=== PATIENT | female | born 1975 | race Caucasian/White ===

== ENCOUNTER 2016-07-20 05:48 | Day surgery (SDC) | payer MEDICARE, MEDICAID ==
[~2016-07-20] VITALS: Ht 165.1 cm; Wt 67.0 kg
[~2016-07-20 05:48] MED LIST: ACID1TAB7; ARIP2TAB PO; ARIP5TAB6 PO; BUPR100T6 PO; BUPR300T49 PO; CHOL500050 PO; ERGO500017 PO; FERR325T20 PO; FLUD0.1T PO; HYDR-3307 PO; INHALER PO; IRON1TAB60 PO; LACT1CAP35 PO; MORP15TA39 PO; MULT-6 PO; NAPR500T3 PO; ONDA4TAB13 SL; OXYC10TA32 PO; OXYC5TAB3 PO; PARO10TA24 PO; SCOPALAMINE PATCH TP; SENN8.6T98 PO; TRAM50TA2 PO; TRAZ100T15 PO
[2016-07-20] MEDS ORDERED: LACTATED RINGERS 1,000 ML IV SCH (07:00)
[2016-07-20] MEDS ORDERED: ALBU6.7H INH (07:00)
[2016-07-20 07:01] VITALS: BP 124/88
[2016-07-20] MEDS ORDERED: BACITRACIN 50,000 UNIT ONE (07:01)
[2016-07-20] MEDS ORDERED: FENTANYL PF 250 MCG/5ML ONE (07:04)
[2016-07-20] MEDS ORDERED: MIDAZOLAM 1 MG/ML, 2ML ONE (07:04)
[2016-07-20] MEDS ORDERED: CEFAZOLIN 1,000 MG ONE (07:28)
[2016-07-20] MEDS ORDERED: PROPOFOL 10 MG/ML, 20ML ONE (07:28)
[2016-07-20] MEDS ORDERED: ONDANSETRON 2MG/ML, 2ML ONE (07:28)
[2016-07-20] MEDS ORDERED: METOCLOPRAMIDE 5 MG/ML, 2ML ONE (07:28)
[2016-07-20] MEDS ORDERED: BUPIVACAINE/PF-EPI 0.25% 1:200K ONE (07:52)
[2016-07-20] MEDS ORDERED: MEPERIDINE/PF 25MG/0.5ML IVPush PRN (08:00)
[2016-07-20] MEDS ORDERED: ACETAMINOPHEN 325 MG TABLET PO PRN (08:00)
[2016-07-20] MEDS ORDERED: LABETALOL 5MG/ML, 20ML IV PRN (08:00)
[2016-07-20] MEDS ORDERED: FENTANYL PF 100 MCG/2ML IV PRN (08:00)
[2016-07-20] MEDS ORDERED: HYDROcodone/APAP 7.5-325MG/15ML UDC PO PRN (08:00)
[2016-07-20] MEDS ORDERED: ONDANSETRON 2MG/ML, 2ML IVPush PRN (08:00)
[2016-07-20] MEDS ORDERED: PROMETHAZINE 25 MG/ML, 1ML IV PRN (08:00)
[2016-07-20] MEDS ORDERED: HYDROcodone/APAP 7.5-325MG/15ML UDC ONE (08:33)
[2016-07-20] MEDS ORDERED: MEPERIDINE/PF 25MG/0.5ML ONE (08:33)
== END 2016-07-20 10:25 | disposition home or self-care (01) ==
LOC: OUT 05:48
PROVIDERS: ATTEND Orthopaedic Surgery
DX: T84.84XA Pain due to internal orthopedic prosthetic devices, implants and grafts, initial encounter (principal); J45.909 Unspecified asthma, uncomplicated; G89.18 Other acute postprocedural pain; Y83.1 Surgical operation with implant of artificial internal device as the cause of abnormal reaction of the patient, or of later complication, without mention of misadventure at the time of the procedure
CPT/HCPCS: 20680; 71010; J0690; J2175; J2405; J2704; J2765; J3010; J7120; J2250

== ENCOUNTER 2017-02-18 10:03 | Inpatient (IN) | payer MEDICARE, MEDICAID ==
[~2017-02-18] VITALS: Ht 167.6 cm; Wt 67.8 kg
[~2017-02-18 10:03] MED LIST changes: +ALBU6.7H INH; -ARIP2TAB PO; +ARIP2TAB2 PO; +ARIP5TAB13 PO; -ARIP5TAB6 PO; +FERR325T18 PO; -FERR325T20 PO; +MORP-52 PO; -MORP15TA39 PO; -NAPR500T3 PO; +NAPR500T4 PO; -OXYC10TA32 PO; +OXYC10TA47 PO; -PARO10TA24 PO; +PARO10TA56 PO
[2017-02-18] MEDS ORDERED: OMEP-110 PO (12:14)
[2017-02-18] MEDS ORDERED: SODIUM CHLORIDE 0.9% 1,000ML IVBOLUS ONE (12:30)
[2017-02-18 12:42] LABS: RAPID INFLUENZA A Negative (Negative); RAPID INFLUENZA B Negative (Negative)
[2017-02-18 13:10] LABS: HEMATOCRIT 52.4 % (34.6-47.8); HEMOGLOBIN 17.4 g/dL (11.7-16.4); WHITE BLOOD COUNT 9.5 x10^3/uL (3.4-10)
[2017-02-18 13:20] LABS: BLOOD UREA NITROGEN 7 mg/dL (7-18)
[2017-02-18 13:24] LABS: ASPARTATE AMINO TRANSFERASE 271 U/L (15-37)
[2017-02-18 13:31] LABS: DIFF TOTAL CELLS COUNTED 100 CELL DIFF
[2017-02-18 13:33] LABS: VERIFY COUNTS? YES
[2017-02-18 13:35] LABS: LARGE PLATELETS 1+
[2017-02-18] MEDS ORDERED: CEFTRIAXONE PMX 1GM/50ML 50 ML ONE (14:22)
[2017-02-18] MEDS ORDERED: AZITHROMYCIN 500 MG in SODIUM CHLORIDE 0.9% 250 ML IVPB ONE (14:30)
[2017-02-18] MEDS ORDERED: CEFTRIAXONE PMX 1GM/50ML 50 ML IVPB ONE (14:30)
[2017-02-18] MEDS ORDERED: ONDANSETRON ODT 4 MG PO PRN (16:30)
[2017-02-18] MEDS ORDERED: ACETAMINOPHEN 325 MG TABLET PO PRN (16:30)
[2017-02-18] MEDS ORDERED: DOXYCYCLINE 100 MG in DEXTROSE 5% 250 ML IV SCH (16:30)
[2017-02-18] MEDS ORDERED: LORazepam 1MG TABLET PO PRN (16:30)
[2017-02-18 16:40] VITALS: BP 124/86
[2017-02-18] MEDS ORDERED: ALBUTEROL SULFATE 2.5 MG/3 ML ONE (17:16)
[2017-02-18] MEDS ORDERED: ALBUTEROL SULFATE 2.5 MG/3 ML NPPB PRN (17:30)
[2017-02-18] MEDS: ALBUTEROL SULFATE 2.5 MG/3 ML NPPB SCH (17:30)
[2017-02-18] MEDS: SODIUM CHLORIDE 0.9% 1,000 ML IV SCH (18:20)
[2017-02-18] MEDS: AMPICILLIN/SULBACTAM 3 GM in SODIUM CHLORIDE 0.9% 100 ML IV SCH ×2 (18:20→22:54)
[2017-02-18 19:50] VITALS: BP 111/76
[2017-02-18] MEDS: ENOXAPARIN 40 MG/0.4 ML SQ SCH (19:57)
[2017-02-18] MEDS: OMEPRAZOLE 20 MG CAPSULE.DR PO SCH (19:57)
[2017-02-18] MEDS: GUAIFENESIN/DM 200-20MG, 10ML UDC PO PRN (19:57)
[2017-02-18] MEDS: DOXYCYCLINE 100MG TABLET PO SCH (21:12)
[2017-02-19 01:10] VITALS: BP 135/89
[2017-02-19] MEDS: GUAIFENESIN/DM 200-20MG, 10ML UDC PO PRN ×2 (02:21→22:00)
[2017-02-19] MEDS: AMPICILLIN/SULBACTAM 3 GM in SODIUM CHLORIDE 0.9% 100 ML IV SCH ×4 (04:06→22:00)
[2017-02-19 05:38] LABS: HEMATOCRIT 43.9 % (34.6-47.8); HEMOGLOBIN 14.7 g/dL (11.7-16.4); WHITE BLOOD COUNT 7.2 x10^3/uL (3.4-10)
[2017-02-19 05:44] LABS: BLOOD UREA NITROGEN 5 mg/dL (7-18)
[2017-02-19 05:49] LABS: ASPARTATE AMINO TRANSFERASE 176 U/L (15-37)
[2017-02-19] MEDS: ALBUTEROL SULFATE 2.5 MG/3 ML NPPB SCH ×4 (06:47→20:00)
[2017-02-19 07:57] VITALS: BP 115/79
[2017-02-19] MEDS: DOXYCYCLINE 100MG TABLET PO SCH ×2 (08:06→20:09)
[2017-02-19] MEDS: PAROXETINE 10 MG TABLET PO SCH (08:06)
[2017-02-19] MEDS: FLUDROCORTISONE 0.1 MG TABLET PO SCH (08:06)
[2017-02-19] MEDS: HYDROcodone/APAP 5/325 TABLET PO PRN ×2 (08:07→14:36)
[2017-02-19] MEDS: GUAIFENESIN ER 600 MG TABLET PO SCH ×2 (09:02→20:09)
[2017-02-19 13:34] VITALS: BP 98/63
[2017-02-19] MEDS: ONDANSETRON 2MG/ML, 2ML IVPush PRN ×2 (14:28→20:09)
[2017-02-19] MEDS: SODIUM CHLORIDE 0.9% 1,000 ML IV SCH (17:21)
[2017-02-19 19:17] VITALS: BP 97/65
[2017-02-19] MEDS: ENOXAPARIN 40 MG/0.4 ML SQ SCH (20:09)
[2017-02-19] MEDS: OMEPRAZOLE 20 MG CAPSULE.DR PO SCH (20:09)
[2017-02-20 02:09] VITALS: BP 102/60
[2017-02-20] MEDS: AMPICILLIN/SULBACTAM 3 GM in SODIUM CHLORIDE 0.9% 100 ML IV SCH ×3 (04:07→18:56)
[2017-02-20 05:47] LABS: HEMATOCRIT 38.8 % (34.6-47.8); HEMOGLOBIN 12.9 g/dL (11.7-16.4); WHITE BLOOD COUNT 5.6 x10^3/uL (3.4-10)
[2017-02-20 05:50] LABS: ASPARTATE AMINO TRANSFERASE 84 U/L (15-37); BLOOD UREA NITROGEN 3 mg/dL (7-18)
[2017-02-20] MEDS: ALBUTEROL SULFATE 2.5 MG/3 ML NPPB SCH ×4 (07:08→19:22)
[2017-02-20] MEDS: GUAIFENESIN ER 600 MG TABLET PO SCH ×2 (08:04→19:33)
[2017-02-20] MEDS: DOXYCYCLINE 100MG TABLET PO SCH ×2 (08:04→19:33)
[2017-02-20] MEDS: SODIUM CHLORIDE 0.9% 1,000 ML IV SCH ×2 (08:04→22:42)
[2017-02-20] MEDS: PAROXETINE 10 MG TABLET PO SCH (08:04)
[2017-02-20] MEDS: FLUDROCORTISONE 0.1 MG TABLET PO SCH (08:05)
[2017-02-20] MEDS: GUAIFENESIN/DM 200-20MG, 10ML UDC PO PRN ×2 (11:31→20:52)
[2017-02-20 13:06] VITALS: BP 107/70
[2017-02-20 19:10] VITALS: BP 106/72
[2017-02-20] MEDS: OMEPRAZOLE 20 MG CAPSULE.DR PO SCH (19:33)
[2017-02-20] MEDS: ENOXAPARIN 40 MG/0.4 ML SQ SCH (19:34)
[2017-02-21] MEDS: AMPICILLIN/SULBACTAM 3 GM in SODIUM CHLORIDE 0.9% 100 ML IV SCH ×4 (00:30→20:17)
[2017-02-21 01:21] VITALS: BP 136/84
[2017-02-21 06:34] LABS: HEMATOCRIT 37.4 % (34.6-47.8); HEMOGLOBIN 12.5 g/dL (11.7-16.4); WHITE BLOOD COUNT 4.9 x10^3/uL (3.4-10)
[2017-02-21 06:44] LABS: BLOOD UREA NITROGEN 3 mg/dL (7-18)
[2017-02-21] MEDS: ALBUTEROL SULFATE 2.5 MG/3 ML NPPB SCH ×4 (07:00→18:46)
[2017-02-21 07:57] VITALS: BP 129/82
[2017-02-21] MEDS: DOXYCYCLINE 100MG TABLET PO SCH ×2 (08:30→20:17)
[2017-02-21] MEDS: GUAIFENESIN ER 600 MG TABLET PO SCH ×2 (08:30→20:17)
[2017-02-21] MEDS: FLUDROCORTISONE 0.1 MG TABLET PO SCH (08:30)
[2017-02-21] MEDS: PAROXETINE 10 MG TABLET PO SCH (08:30)
[2017-02-21] MEDS: GUAIFENESIN/DM 200-20MG, 10ML UDC PO PRN ×2 (08:31→16:05)
[2017-02-21] MEDS: SODIUM CHLORIDE 0.9% 1,000 ML IV SCH (14:04)
[2017-02-21 14:37] VITALS: BP 110/75
[2017-02-21] MEDS ORDERED: POTASSIUM CHLORIDE 40 MEQ in SODIUM CHLORIDE 0.9% 500 ML IV ONE (15:30)
[2017-02-21 19:27] VITALS: BP 137/85
[2017-02-21] MEDS: HYDROcodone/APAP 5/325 TABLET PO PRN (20:17)
[2017-02-21] MEDS: ENOXAPARIN 40 MG/0.4 ML SQ SCH (20:17)
[2017-02-21] MEDS: OMEPRAZOLE 20 MG CAPSULE.DR PO SCH (20:17)
[2017-02-21] MEDS: ONDANSETRON 2MG/ML, 2ML IVPush PRN (22:36)
[2017-02-22] MEDS: AMPICILLIN/SULBACTAM 3 GM in SODIUM CHLORIDE 0.9% 100 ML IV SCH ×4 (02:15→20:46)
[2017-02-22 03:24] VITALS: BP 123/84
[2017-02-22 05:54] LABS: BLOOD UREA NITROGEN 1 mg/dL (7-18)
[2017-02-22] MEDS ORDERED: POTASSIUM CHLORIDE 40 MEQ in SODIUM CHLORIDE 0.9% 500 ML IV ONE (07:00)
[2017-02-22] MEDS: ALBUTEROL SULFATE 2.5 MG/3 ML NPPB SCH (07:52)
[2017-02-22 08:00] VITALS: BP 123/80
[2017-02-22] MEDS ORDERED: FLUDROCORTISONE 0.1 MG TABLET PO SCH (09:00)
[2017-02-22] MEDS: DOXYCYCLINE 100MG TABLET PO SCH ×2 (09:06→20:45)
[2017-02-22] MEDS: PAROXETINE 10 MG TABLET PO SCH (09:06)
[2017-02-22] MEDS: NS + 20MEQ KCL 1,000 ML IV SCH (09:06)
[2017-02-22] MEDS: GUAIFENESIN ER 600 MG TABLET PO SCH ×2 (09:06→20:45)
[2017-02-22 14:00] VITALS: BP 117/79
[2017-02-22 18:30] LABS: BLOOD UREA NITROGEN 4 mg/dL (7-18)
[2017-02-22 19:47] VITALS: BP 134/88
[2017-02-22] MEDS: OMEPRAZOLE 20 MG CAPSULE.DR PO SCH (20:45)
[2017-02-22] MEDS: ENOXAPARIN 40 MG/0.4 ML SQ SCH (20:46)
[2017-02-23] MEDS: NS + 20MEQ KCL 1,000 ML IV SCH ×2 (01:00→14:05)
[2017-02-23] MEDS: AMPICILLIN/SULBACTAM 3 GM in SODIUM CHLORIDE 0.9% 100 ML IV SCH ×4 (02:57→21:06)
[2017-02-23 04:53] VITALS: BP 130/87
[2017-02-23 05:59] LABS: BLOOD UREA NITROGEN 3 mg/dL (7-18)
[2017-02-23 07:04] VITALS: BP 120/81
[2017-02-23] MEDS: GUAIFENESIN ER 600 MG TABLET PO SCH ×2 (08:09→21:07)
[2017-02-23] MEDS: DOXYCYCLINE 100MG TABLET PO SCH ×2 (08:09→21:07)
[2017-02-23] MEDS: PAROXETINE 10 MG TABLET PO SCH (08:10)
[2017-02-23 12:55] VITALS: BP 127/90
[2017-02-23 20:00] VITALS: BP 124/85
[2017-02-23] MEDS: OMEPRAZOLE 20 MG CAPSULE.DR PO SCH (21:00)
[2017-02-23] MEDS: ENOXAPARIN 40 MG/0.4 ML SQ SCH (21:07)
[2017-02-24 02:00] VITALS: BP_SYST 117; BP_SYST 128; BP_DIAS 70; BP_DIAS 82
[2017-02-24] MEDS: AMPICILLIN/SULBACTAM 3 GM in SODIUM CHLORIDE 0.9% 100 ML IV SCH ×3 (03:51→15:00)
[2017-02-24 08:22] VITALS: BP 115/78
[2017-02-24] MEDS: DOXYCYCLINE 100MG TABLET PO SCH (08:58)
[2017-02-24] MEDS: GUAIFENESIN ER 600 MG TABLET PO SCH (08:58)
[2017-02-24] MEDS: PAROXETINE 10 MG TABLET PO SCH (08:58)
[2017-02-24] MEDS ORDERED: DOXY100T PO (12:08)
[2017-02-24] MEDS ORDERED: AMOX1TAB64 PO (12:08)
== END 2017-02-24 16:06 | disposition home or self-care (01) | DRG 871 ==
LOC: ED 14:03 → EDIP 14:04 → ED 14:07 → 3NE 15:07
PROVIDERS: ADMIT Family Medicine; ATTEND Family Medicine
DX: A41.9 Sepsis, unspecified organism (principal); J69.0 Pneumonitis due to inhalation of food and vomit; J96.91 Respiratory failure, unspecified with hypoxia; G71.0 Muscular dystrophy; F32.9 Major depressive disorder, single episode, unspecified; E87.6 Hypokalemia; G47.33 Obstructive sleep apnea (adult) (pediatric); G71.11 Myotonic muscular dystrophy; M54.9 Dorsalgia, unspecified; G89.29 Other chronic pain; J02.0 Streptococcal pharyngitis; K21.9 Gastro-esophageal reflux disease without esophagitis; K58.9 Irritable bowel syndrome, unspecified; Z82.49 Family history of ischemic heart disease and other diseases of the circulatory system; Z83.3 Family history of diabetes mellitus; Z90.710 Acquired absence of both cervix and uterus; Z99.81 Dependence on supplemental oxygen; Z88.8 Allergy status to other drugs, medicaments and biological substances; Z88.5 Allergy status to narcotic agent; Z87.81 Personal history of (healed) traumatic fracture
CPT/HCPCS: 36415; 71010; 80048; 80053; 83605; 84145; 85025; 87040; 87081; 87400; 87880; 93005; 94640; 96360; 96361; J0295; J0696; J1650; J2405; J3480; J7613; J7030; J7040

== ENCOUNTER 2017-08-08 14:20 | Emergency (ER) | payer MEDICARE, MEDICAID ==
[~2017-08-08] VITALS: Ht 166.4 cm; Wt 67.5 kg
[~2017-08-08 14:20] MED LIST changes: +AMOX1TAB64 PO; +DOXY100T PO; +NAPR-685 PO; -NAPR500T4 PO; +OMEP-110 PO
[2017-08-08] MEDS ORDERED: SODIUM CHLORIDE 0.9% 1,000 ML IV ONE (14:57)
[2017-08-08] MEDS ORDERED: ONDANSETRON ODT 4 MG PO ONE (15:00)
[2017-08-08] MEDS ORDERED: SODIUM CHLORIDE FLUSH 10ML SYR IVF ONE (15:00)
[2017-08-08] MEDS ORDERED: SODIUM CHLORIDE 0.9% 1,000ML IVBOLUS ONE (15:00)
[2017-08-08] MEDS ORDERED: ONDANSETRON ODT 4 MG ONE (15:12)
[2017-08-08 15:21] LABS: ALANINE AMINOTRANSFERASE 75 U/L (12-78); ALBUMIN 3.7 g/dL (3.4-5.0); ANION GAP 8 mmol/L (5-15); CALCIUM 9.5 mg/dL (8.5-10.1); CHLORIDE 111 mmol/L (98-107)
[2017-08-08 15:23] LABS: ALKALINE PHOSPHATASE 126 U/L (45-117); BILIRUBIN,TOTAL 0.5 mg/dL (0.2-1.0); TOTAL PROTEIN 7.2 g/dL (6.4-8.2)
[2017-08-08] MEDS ORDERED: GABA600T2 PO (15:30)
[2017-08-08] MEDS ORDERED: NAPR-685 PO (15:30)
[2017-08-08 15:41] LABS: BASOPHILS # (AUTO) 0.03 x10^3/uL (0-0.1); BASOPHILS % (AUTO) 0 % (0-1); EOSINOPHILS # (AUTO) 0.16 x10^3/uL (0-0.4); EOSINOPHILS % (AUTO) 2 % (1-7); LYMPHOCYTES # (AUTO) 2.86 x10^3/uL (1-3.4); LYMPHOCYTES % (AUTO) 30 % (22-44); MD SCAN; MEAN CORPUSCULAR HEMOGLOBIN 29.3 pg (27.0-34.8); MEAN CORPUSCULAR HGB CONC 32.9 g/dL (32.4-35.8); MONOCYTES # (AUTO) 0.59 x10^3/uL (0.2-0.8); MONOCYTES % (AUTO) 6 % (2-9); NEUTROPHILS # (AUTO) 5.85 x10^3/uL (1.8-6.8); NEUTROPHILS % (AUTO) 62 % (42-75); PLATELET COUNT 232 x10^3/uL (130-400); RED BLOOD COUNT 5.45 x10^6/uL (3.82-5.3)
[2017-08-08 15:43] LABS: MICROSCOPIC INDICATED
[2017-08-08 15:52] LABS: CULTURE INDICATED? NO
[2017-08-08 16:38] VITALS: BP 119/86
== END 2017-08-08 16:59 | disposition home or self-care (01) ==
LOC: ED 15:37
DX: E86.0 Dehydration (principal); F32.9 Major depressive disorder, single episode, unspecified; R11.2 Nausea with vomiting, unspecified
CPT/HCPCS: 36415; 74021; 80053; 81001; 83690; 85025; 96360; 99285; J7030; Q0162